=== PATIENT | male | born 1960 | race Caucasian/White ===

== ENCOUNTER → 2018-07-16 01:28 | Outpatient (CLI) | payer MEDICARE, BC, SELFPAY ==
--- NOTE | 2018-07-16 13:14 | SCREENCT_ITS ---
SYMPTOMS/DIAGNOSIS: CURRENT SMOKER, F17.200, NICOTINE DEPENDENCE, F17.[address]: Emphysematous changes are noted in the lungs. No nodules are identified. The heart is mildly enlarged. Note is made of intravenous catheter ending in the distal portion of the superior vena cava. Coronary artery calcification is seen. There are atherosclerotic changes involving the aorta without evidence of an aneurysm. SUMMARY: No nodules are identified. This is a Lung RADS Category I. Follow up evaluation with annual LDCT is recommended.
== END ==
PROVIDERS: PCP Family Medicine; Visit Provider Family Medicine
DX: Z12.2 Encounter for screening for malignant neoplasm of respiratory organs (principal); F17.210 Nicotine dependence, cigarettes, uncomplicated; I51.7 Cardiomegaly
CPT/HCPCS: G0297

== ENCOUNTER 2018-12-29 09:49 | Emergency (ER) | payer MEDICARE, BC, SELFPAY ==
[2018-12-29 09:53] VITALS: BP 173/84; PULSE 93; RESP 20; TEMP 36.9; O2SAT 98
--- NOTE | 2018-12-29 10:36 | W.ED.GENAD ---
Discharge Plan Disposition Patient Disposition: HOME Condition: Stable Discharge Details Chief Complaint: Nk/Back Pain Clinical Impression: Back pain, Sciatica Primary Care Provider: Freddy Stock ED Provider: Karrie Champion Home Meds and New Rx's Prescriptions: New cyclobenzaprine 10 mg tablet 10 mg PO TID PRN (Reason: muscle spasm) Qty: 10 RF: 0 Continued albuterol sulfate 8.5 GM HFA aerosol inhaler 2 puff Inhalation PRN PRNRF: 0 Symbicort 10.2 GM HFA aerosol inhaler 1 puff Inhalation HS RF: 0 calcium citrate [Calcitrate] 200 MG tablet PO TID RF: 0 Discharge Instructions Instructions: Sciatica (ED), Back Pain (ED) Additional Instructions: Alternate ice and heat to the affected area several times daily for 20 minutes at a time. Alternate Tylenol and Motrin as needed and directed for pain. Take the Flexeril for pain or muscle spasm not relieved with Tylenol or Motrin. Follow-up with the primary care doctor in 1 week for reevaluation. Return immediately to the emergency department with any worsening or concerning symptoms. Discharge Data Discharge Physician: Karrie Champion Medical Decision Making 58-year-old male with history of hypertension, obstructive sleep apnea, end-stage renal disease on dialysis who presents for left-sided lower back pain for the past 2-3 days. He denies any known injury. No cauda equina symptoms. Occasional radiation into left buttock. Patient states he does not make urine for the past 3 years but does have occasional chronic sense of urgency in the mornings but states this is no different than usual. Blood pressure mildly hypertensive. Patient appears nontoxic and in no acute distress. He is tenderness palpation of his left upper buttock and pain and left-sided lower back with range of motion and movement and certain positions. No focal deficits. Neurovascularly intact. Heart, lung and abdomen exam normal. Differential diagnosis most likely muscle strain, sciatica, or radiating pain from arthritis from hip. As he has chronic dull aching pain, no associated nausea or vomiting, and pain worse with movement, presentation does not appear consistent with kidney stone. The pain is in the left lower back and lower buttock, so I do not suspect any cardiac or aortic pathology. Patient states he drove himself here. Patient has dialysis in the next 90 minutes. Patient states he does not like to take narcotic pain medications. Will hold on steroids due to h/o ESRD and pt is agreeable. Patient recommended to continue alternating Tylenol Motrin, ice and heat. Will add a muscle relaxer. Patient instructed follow-up with primary care doctor for reevaluation and return here at any time if worse. HPI General Mode of arrival: ambulatory. Date/Time Provider Initiated Documentation: 12/29/18 10:01. Limitations to Documentation: no limitations. Information obtained by: patient. HPI Narrative: Patient is a 58-year-old male with a history of hypertension, obstructive sleep apnea, end-stage renal disease on dialysis who presents for right lower back pain for the past 3 days. Patient states the pain is worse with movement. Patient describes the pain as aching with radiation into his left buttock. Patient states he can take motrin and that he has taken it and also applied heat with some relief. States the pain is currently 8/10. He denies any fever, urinary or fecal incontinence, urinary symptoms, abdominal pain, chest pain, shortness of breath, saddle anesthesia, leg weakness or numbness. He states the pain is worse with any movement, standing, lifting his legs and when laying on his side. He states the pain is also better with certain positions. Patient states he has not made urine for the past 3 years. States he usually has a sensation of urgency in the mornings since he has not made urine in the past 3 years, but he denies any worsening or change in symptoms of breath for the past 3 days. Related Data Home Medications Medication Instructions Recorded Confirmed Symbicort 1 puff INHALATION HS 02/17/15 12/29/18 albuterol sulfate 2 puff INHALATION PRN PRN 02/17/15 12/29/18 calcium citrate [Calcitrate] mg PO TID 03/22/17 cyclobenzaprine 10 mg PO TID PRN #10 tab 12/29/18 Previous Rx's Medication Instructions Recorded cyclobenzaprine 10 mg PO TID PRN #10 tab 12/29/18 Allergies Allergy/AdvReac Type Severity Reaction Status Date / Time amoxicillin [Amoxicillin] Allergy Unknown Hives Unverified 12/29/18 09:56 acetaminophen [From Tylenol] Allergy Hives Unverified 12/29/18 09:56 cefazolin Allergy Hives Unverified 12/29/18 09:56 calcitriol AdvReac Intermediate Hives Unverified 12/29/18 09:56 General Stated Complaint: Nk/Back Pain FATEMEH: 3 Review of Systems Review of Systems All systems reviewed & are unremarkable except as noted in HPI and below Constitutional Reports as per HPI, Denies chills and Denies fever(s) Eyes Denies blurry vision ENT Denies dizziness, Denies sore throat and Denies throat swelling Cardiovascular Denies chest pain and Denies dyspnea Respiratory Denies cough and Denies dyspnea Gastrointestinal Denies abdominal pain, Denies diarrhea and Denies vomiting Genitourinary Denies hematuria and Denies dysuria Musculoskeletal Reports back pain and Denies numbness Integumentary/Breasts Denies lesions and Denies rash Neurologic Denies dizziness, Denies focal weakness and Denies numbness Allergic/Immunologic Denies throat swelling [facility]END[facility] TO [facility] Medical History ESRD (end stage renal disease) on dialysis (Acute) DVT (deep venous thrombosis) (Chronic) HTN (hypertension) (Chronic) CARLOS A on CPAP (Chronic) Surgical History Fistula (Acute) History of parathyroidectomy (Acute) Social History Smoking and Tabacco status: Current every day alcohol intake: never substance use type: does not use Exam Const General: cooperative, healthy appearing and no acute distress [facility] Head: normal to inspection Face and sinus: normal facial exam Eyes General: appearance normal, both eyes and all related structures EOM: EOM intact bilaterally Neck Neck: normal visual inspection and No submandibular swelling Lymphatic: no lymphadenopathy noted Chest Chest: normal inspection of the chest and no tenderness Resp Effort & Inspection: normal respiratory effort and able to speak in complete sentences Auscultation: clear to auscultation bilaterally Cardio Rate: regular rate Rhythm: regular rhythm GI Inspection: normal to inspection Palpation: soft, not firm, not rigid and nontender Auscultation: normal bowel sounds Back/Spine/Pelvis Thoracic/Lumbar Spine: thoracic and lumbar spine normal to inspection, straight leg raise negative bilaterally, No paraspinal tenderness, No thoracic spinal tenderness and No lumbar spinal tenderness Sacrum: tenderness on the left (upper buttock) Skin General skin exam: no rashes or lesions noted Neuro General: alert, awake, oriented x3, moves all extremities, no meningeal signs and no focal motor deficits Cognition: normal cognition Speech: speech normal Motor: muscle tone normal throughout and strength 5/5 throughout Sensory Exam: no sensory deficits noted DTR's: Rt Patellar: 1+, Lt Patellar: 1+, Rt Ankle: 1+ and Lt Ankle: 1+ Plantar Reflexes: Equivocal: bilateral Extrem General: normal to inspection, full ROM, normal capillary refill, no calf tenderness, no calf tenderness bilaterally and no edema Right lower extremity: foot Details: vascular exam Details: dorsalis pedis pulse present and posterior tibial pulse present Left lower extremity: foot Details: vascular exam Details: dorsalis pedis pulse present and posterior tibial pulse present Psych Appearance: grossly normal Mental Status: mental status grossly normal Speech and Movement: speech and movement normal Affect: normal affect Course Vital Signs Temperature 98.4 F 12/29/18 09:53 Pulse 93 H 12/29/18 09:53 Respiratory Rate 20 12/29/18 09:53 Blood Pressure 173/84 H 12/29/18 09:53 Pulse Oximetry 98 12/29/18 09:53 Temperature 98.4 F 12/29/18 09:53 Temperature Source Temporal Artery Scan 12/29/18 09:53 Pulse 93 H 12/29/18 09:53 Respiratory Rate 20 12/29/18 09:53 Respiratory Effort Non-Labored 12/29/18 09:53 Blood Pressure 173/84 H 12/29/18 09:53 Blood Pressure Position Sitting 12/29/18 09:53 Pulse Oximetry 98 12/29/18 09:53 Oxygen Delivery Method Room Air 12/29/18 09:53 Oxygen Flow Rate 0 12/29/18 09:53 Pain Level 8 12/29/18 09:57
--- NOTE | 2018-12-29 10:46 | ED.GENADUL_ITS ---
Discharge Plan Disposition Patient Disposition: HOME Condition: Stable Discharge Details Chief Complaint: Nk/Back Pain Clinical Impression: Back pain, Sciatica Primary Care Provider: Freddy Stock ED Provider: Karrie Champion Home Meds and New Rx's Prescriptions: New cyclobenzaprine 10 mg tablet 10 mg PO TID PRN (Reason: muscle spasm) Qty: 10 RF: 0 Continued albuterol sulfate 8.5 GM HFA aerosol inhaler 2 puff Inhalation PRN PRNRF: 0 Symbicort 10.2 GM HFA aerosol inhaler 1 puff Inhalation HS RF: 0 calcium citrate [Calcitrate] 200 MG tablet PO TID RF: 0 Discharge Instructions Instructions: Sciatica (ED), Back Pain (ED) Additional Instructions: Alternate ice and heat to the affected area several times daily for 20 minutes at a time. Alternate Tylenol and Motrin as needed and directed for pain. Take the Flexeril for pain or muscle spasm not relieved with Tylenol or Motrin. Follow-up with the primary care doctor in 1 week for reevaluation. Return immediately to the emergency department with any worsening or concerning symptoms. Discharge Data Discharge Physician: Karrie Champion Medical Decision Making 58-year-old male with history of hypertension, obstructive sleep apnea, end- stage renal disease on dialysis who presents for left-sided lower back pain for the past 2-3 days. He denies any known injury. No cauda equina symptoms. Occasional radiation into left buttock. Patient states he does not make urine for the past 3 years but does have occasional chronic sense of urgency in the mornings but states this is no different than usual. Blood pressure mildly hypertensive. Patient appears nontoxic and in no acute distress. He is tenderness palpation of his left upper buttock and pain and left-sided lower back with range of motion and movement and certain positions. No focal deficits. Neurovascularly intact. Heart, lung and abdomen exam normal. Differential diagnosis most likely muscle strain, sciatica, or radiating pain from arthritis from hip. As he has chronic dull aching pain, no associated nausea or vomiting, and pain worse with movement, presentation does not appear consistent with kidney stone. The pain is in the left lower back and lower buttock, so I do not suspect any cardiac or aortic pathology. Patient states he drove himself here. Patient has dialysis in the next 90 minutes. Patient states he does not like to take narcotic pain medications. Will hold on steroids due to h/o ESRD and pt is agreeable. Patient recommended to continue alternating Tylenol Motrin, ice and heat. Will add a muscle relaxer. Patient instructed follow-up with primary care doctor for reevaluation and return here at any time if worse. HPI General Mode of arrival: ambulatory . Date/Time Provider Initiated Documentation: 12/29/18 10:01 . Limitations to Documentation: no limitations . Information obtained by: patient . HPI Narrative: Patient is a 58-year-old male with a history of hypertension, obstructive sleep apnea, end-stage renal disease on dialysis who presents for right lower back pain for the past 3 days. Patient states the pain is worse with movement. Patient describes the pain as aching with radiation into his left buttock. Patient states he can take motrin and that he has taken it and also applied heat with some relief. States the pain is currently 8/10. He denies any fever, urinary or fecal incontinence, urinary symptoms, abdominal pain, chest pain, shortness of breath, saddle anesthesia, leg weakness or numbness. He states the pain is worse with any movement, standing, lifting his legs and when laying on his side. He states the pain is also better with certain positions. Patient states he has not made urine for the past 3 years. States he usually has a sensation of urgency in the mornings since he has not made urine in the past 3 years, but he denies any worsening or change in symptoms of breath for the past 3 days. Related Data Home Medications Medication Instructions Recorded Confirmed Symbicort 1 puff INHALATION HS 02/17/15 12/29/18 albuterol sulfate 2 puff INHALATION PRN PRN 02/17/15 12/29/18 calcium citrate [Calcitrate] mg PO TID 03/22/17 cyclobenzaprine 10 mg PO TID PRN #10 tab 12/29/18 Previous Rx's Medication Instructions Recorded cyclobenzaprine 10 mg PO TID PRN #10 tab 12/29/18 Allergies Allergy/AdvReac Type Severity Reaction Status Date / Time amoxicillin [Amoxicillin] Allergy Unknown Hives Unverified 12/29/18 09:56 acetaminophen [From Tylenol] Allergy Hives Unverified 12/29/18 09:56 cefazolin Allergy Hives Unverified 12/29/18 09:56 calcitriol AdvReac Intermediate Hives Unverified 12/29/18 09:56 General Stated Complaint: Nk/Back Pain FATEMEH: 3 Review of Systems Review of Systems All systems reviewed & are unremarkable except as noted in HPI and below Constitutional Reports as per HPI, Denies chills and Denies fever(s) Eyes Denies blurry vision ENT Denies dizziness, Denies sore throat and Denies throat swelling Cardiovascular Denies chest pain and Denies dyspnea Respiratory Denies cough and Denies dyspnea Gastrointestinal Denies abdominal pain, Denies diarrhea and Denies vomiting Genitourinary Denies hematuria and Denies dysuria Musculoskeletal Reports back pain and Denies numbness Integumentary/Breasts Denies lesions and Denies rash Neurologic Denies dizziness, Denies focal weakness and Denies numbness Allergic/Immunologic Denies throat swelling [facility] Medical History ESRD (end stage renal disease) on dialysis (Acute) DVT (deep venous thrombosis) (Chronic) HTN (hypertension) (Chronic) CARLOS A on CPAP (Chronic) Surgical History Fistula (Acute) History of parathyroidectomy (Acute) Social History Smoking and Tabacco status: Current every day alcohol intake: never substance use type: does not use Exam Const General: cooperative, healthy appearing and no acute distress [facility] Head: normal to inspection Face and sinus: normal facial exam Eyes General: appearance normal, both eyes and all related structures EOM: EOM intact bilaterally Neck Neck: normal visual inspection and No submandibular swelling Lymphatic: no lymphadenopathy noted Chest Chest: normal inspection of the chest and no tenderness Resp Effort & Inspection: normal respiratory effort and able to speak in complete sentences Auscultation: clear to auscultation bilaterally Cardio Rate: regular rate Rhythm: regular rhythm GI Inspection: normal to inspection Palpation: soft, not firm, not rigid and nontender Auscultation: normal bowel sounds Back/Spine/Pelvis Thoracic/Lumbar Spine: thoracic and lumbar spine normal to inspection, straight leg raise negative bilaterally, No paraspinal tenderness, No thoracic spinal tenderness and No lumbar spinal tenderness Sacrum: tenderness on the left (upper buttock) Skin General skin exam: no rashes or lesions noted Neuro General: alert, awake, oriented x3, moves all extremities, no meningeal signs and no focal motor deficits Cognition: normal cognition Speech: speech normal Motor: muscle tone normal throughout and strength 5/5 throughout Sensory Exam: no sensory deficits noted DTR's: Rt Patellar: 1+, Lt Patellar: 1+, Rt Ankle: 1+ and Lt Ankle: 1+ Plantar Reflexes: Equivocal: bilateral Extrem General: normal to inspection, full ROM, normal capillary refill, no calf tenderness, no calf tenderness bilaterally and no edema Right lower extremity: foot Details: vascular exam Details: dorsalis pedis pulse present and posterior tibial pulse present Left lower extremity: foot Details: vascular exam Details: dorsalis pedis pulse present and posterior tibial pulse present Psych Appearance: grossly normal Mental Status: mental status grossly normal Speech and Movement: speech and movement normal Affect: normal affect Course Vital Signs Temperature 98.4 F 12/29/18 09:53 Pulse 93 H 12/29/18 09:53 Respiratory Rate 20 12/29/18 09:53 Blood Pressure 173/84 H 12/29/18 09:53 Pulse Oximetry 98 12/29/18 09:53 Temperature 98.4 F 12/29/18 09:53 Temperature Source Temporal Artery Scan 12/29/18 09:53 Pulse 93 H 12/29/18 09:53 Respiratory Rate 20 12/29/18 09:53 Respiratory Effort Non-Labored 12/29/18 09:53 Blood Pressure 173/84 H 12/29/18 09:53 Blood Pressure Position Sitting 12/29/18 09:53 Pulse Oximetry 98 12/29/18 09:53 Oxygen Delivery Method Room Air 12/29/18 09:53 Oxygen Flow Rate 0 12/29/18 09:53 Pain Level 8 12/29/18 09:57
[2018-12-29 10:57] VITALS: BP 173/84; PULSE 93; RESP 20; TEMP 36.9; O2SAT 98
== END 2018-12-29 11:00 | disposition home or self-care (01) ==
PROVIDERS: Emergency Provider Physician Assistant; PCP Family Medicine
DX: M54.42 Lumbago with sciatica, left side (principal); I12.0 Hypertensive chronic kidney disease with stage 5 chronic kidney disease or end stage renal disease; N18.6 End stage renal disease; Z99.2 Dependence on renal dialysis
CPT/HCPCS: 99283

== ENCOUNTER 2019-01-27 06:14 | Day surgery (SDC) | payer MEDICARE, BC, SELFPAY ==
[2019-01-27 06:25] VITALS: BP 145/72; PULSE 88; RESP 19; TEMP 36.2; O2SAT 95
[2019-01-27] MEDS: Lidocaine 2% Multi-Dose 50 ML VIAL (07:39)
--- NOTE | 2019-01-27 08:19 | W.PM.DSUDISC ---
Discharge Plan Disposition Patient Disposition: HOME Condition: Good Discharge Details Attending Provider: Amy To Primary Care Provider: Freddy Stock Home Meds and New Rx's Prescriptions: New ibuprofen 400 mg Tablet 400 mg PO Q4H PRN PRNQty: 0 RF: 0 Continued albuterol sulfate 8.5 GM HFA aerosol inhaler 2 puff Inhalation PRN PRNRF: 0 Symbicort 10.2 GM HFA aerosol inhaler 1 puff Inhalation HS RF: 0 Auryxia 210 mg iron Tablet 2 tab PO TID RF: 0 Discharge Instructions Additional Instructions: -ice -no lifting over 5#'s x24 -no straining to move bowels can shower in 24 hrs -remove dressings in 24 hrs -steri tapes will fall off on there own Stand Alone Forms: Rao Verdugo (DSU) Activity:: see above Remove Dressings/Wound Care:: 24 hours Shower/Bathe:: 24 hours Diet:: renal Discharge Orders Discharge Orders: Discharge Order (Routine); Ordered 01/27/19 Ordered By: Amy To DS: Diagnosis Discharge Diagnosis (1) ESRD (end stage renal disease) on dialysis: Status: Acute
--- NOTE | 2019-01-27 10:23 | ROE_ITS ---
REPORT OF OPERATIVE PROCEDURE DATE OF PROCEDURE January 27, 2019 PREOPERATIVE DIAGNOSES Need for catheter removal for end-stage renal disease and dialysis. POSTOPERATIVE DIAGNOSES Need for catheter removal for end-stage renal disease and dialysis. PROCEDURE Cath removal. SURGEON Amy To M.D. ANESTHESIA Local. ESTIMATED BLOOD LOSS None. The patient tolerated the procedure without complications. INDICATIONS Mr. 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 He has a working fistula in his right upper arm with a good thrill today. No signs of infection. Informed consent is obtained. Discussed the risks and benefits of the procedure, including, but not limited to bleeding, infection, scarring and stenosis of the vein. He does not need preop antibiotics. The patient is marked preoperatively. PROCEDURE The patient is brought to the Procedure Room. He was placed in the supine position. The proximal and distal cuff sites and the tunnel are anesthetized with 0.25% Marcaine and 1% epi mixed 50/50- 18cc. Prior to beginning the area had been prepped and draped in the usual sterile fashion, using ChloraPrep scrub solution. Time out is performed. A #12 blade was used to make a small incision over the distal cuff. The distal cuff was then dissected out using blunt dissection. Attention was then turned to the proximal cuff, and this was dissected out as well. The catheter was removed. Pressure was held. There was no bleeding noted. The skin incisions are closed with Steri-Strips, Mediport tape and benzoin. Pressure dressing is applied. The patient tolerated the procedure without complication and is transferred to recovery room in stable condition. CC: Arsalan Cortez M.D.
== END 2019-01-27 08:33 | disposition home or self-care (01) ==
PROVIDERS: PCP Family Medicine; Visit Provider Surgery
PROC: (CPT 36590; principal; 2019-01-27 07:30)
DX: Z49.01 Encounter for fitting and adjustment of extracorporeal dialysis catheter (principal); N18.6 End stage renal disease; Z99.2 Dependence on renal dialysis; Z45.2 Encounter for adjustment and management of vascular access device
CPT/HCPCS: 36589

== ENCOUNTER → 2019-01-27 07:46 | Outpatient (BNVA) | payer MEDICARE, BC, SELFPAY | PROVIDERS: PCP Family Medicine; Referring Provider Family Medicine; Visit Provider Surgery | DX: Z45.2 Encounter for adjustment and management of vascular access device (principal) | CPT/HCPCS: 36589 ==